=== PATIENT | male | born 1990 | race Caucasian/White ===

== ENCOUNTER 2016-11-12 11:37 | Emergency (ER) | payer SELFPAY ==
--- NOTE | 2016-11-12 12:10 | UC ---
Respiratory Complaint HPI - HPI Summary HPI Summary: PATIENT IS AN OTHERWISE HEALTHY 26YO M WHO PRESENTS TO WITH CC OF FOUR DAYS OF ILLNESS WHICH INCLUDE NAUSEA, HEAD CONGESTION, DIZZINESS, AND DIFFICULTY SWALLOWING. ALSO COMPLAINS OF COUGH WITH SPUTUM PRODUCTION. HE IS UNSURE IF HE HAS A FEVER BUT HAS BEEN HAVING COLD SWEATS. THROAT IS ONLY SORE BECAUSE HE HAS BEEN SLEEPING WITH HIS MOUTH OPEN. HE THINKS HE HAS DOUBLE EAR INFECTIONS WELL D/T BILATERAL EAR PAIN. NO HX OF EAR INFECTIONS IN THE PAST. DENIES FLU SHOT THIS YEAR. HE DENIES PREVIOUS SINUS INFECTIONS OR ILLNESSES. HE STATES LAST TIME ILL WAS SEVERAL YEARS AGO. DENIES MEDICATION USE FOR ANY REASON AND ALLERGIES INCLUDE AMOXICILLIN. PATIENT IS A SMOKER. SYMPTOMS ARE WORSE AT NIGHT. PATIENT LIVES ALONE AND DENIES SICK CONTACTS. - History of Current Complaint Chief Complaint: UCRespiratory Stated Complaint: RESP ISSUE EAR PAIN Time Seen by Provider: 11/12/16 12:07 Hx Obtained From: Patient Onset/Duration: Gradual Onset Timing: Constant Severity Initially: Moderate Severity Currently: Moderate Pain Intensity: 4 Pain Scale Used: 0-10 Numeric Character: Cough: Productive Aggravating Factors: Deep Breaths Alleviating Factors: OTC Meds, Upright Position Associated Signs And Symptoms: Positive: Fever, Chills, URI, Nasal Congestion, Hoarseness, Sinus Discomfort - Risk Factors Pulmonary Embolism Risk Factors: Negative Cardiac Risk Factors: Negative Pseudomonas Risk Factors: Negative Tuberculosis Risk Factors: Negative - Allergies/Home Medications Allergies/Adverse Reactions: Allergies Allergy/AdvReac Type Severity Reaction Status Date / Time Amoxicillin Allergy Severe Rash Verified 11/12/16 11:46 Home Medications: Home Medications Zquil 10 ml PO QPM PRN 11/12/16 [History] PMH/Surg Hx/FS Hx/Imm Hx Previously Healthy: Yes Endocrine History Of: Denies: Diabetes, Thyroid Disease Cardiovascular History Of: Denies: Cardiac Disorders, Hypertension Respiratory History Of: Denies: COPD, Asthma GI/ History Of: Denies: Ulcer - Surgical History Surgical History: None - Family History Known Family History: Positive: None - Social History Occupation: Employed Full-time Lives: Alone Alcohol Use: Rare Substance Use Type: Marijuana Smoking Status (MU): Heavy Every Day Tobacco Smoker Type: Cigarettes Amount Used/How Often: 1/2 PPD Length of Time of Smoking/Using Tobacco: 10+ YEARS Have You Smoked in the Last Year: Yes Household Exposure Type: Cigarettes Review of Systems Constitutional: Fever, Chills, Fatigue Skin: Negative ENT: Sore Throat, Ear Ache, Nasal Discharge Respiratory: Shortness Of Breath, Cough Cardiovascular: Negative Gastrointestinal: Other - NAUSEA Genitourinary: Negative Motor: Negative Musculoskeletal: Negative Neurological: Headache Psychological: Negative All Other Systems Reviewed And Are Negative: Yes Physical Exam Triage Information Reviewed: Yes Appearance: Ill-Appearing, Thin Vital Signs: Initial Vital Signs Temp 99.6 F 11/12/16 11:48 Pulse 101 11/12/16 11:48 Resp 16 11/12/16 11:48 BP 123/83 11/12/16 11:48 Pulse Ox 100 11/12/16 11:48 Vital Signs Reviewed: Yes Eye Exam: Normal Eyes: Positive: Conjunctiva Clear ENT: Positive: Pharynx normal, Nasal congestion, Nasal drainage, Tonsillar swelling Dental Exam: Normal Neck exam: Normal Neck: Positive: Supple, Nontender, No Lymphadenopathy Respiratory Exam: Normal Respiratory: Positive: Lungs clear, No respiratory distress, Respiratory distress Cardiovascular: Positive: RRR, Pulses Normal Musculoskeletal Exam: Normal Neurological: Positive: Alert Psychological Exam: Normal Psychological: Positive: Normal Response To Family, Age Appropriate Behavior Skin Exam: Normal UC Diagnostic Evaluation - Laboratory O2 Sat by Pulse Oximetry: 100 Respiratory Course/Dx - Course Course Of Treatment: PATIENT NOTES TO FEVER, CHILLS AND ACHES WITH SINUS PRESSURE. HE DOES NOT HAVE HEALTH INSURANCE AND PREFERS NOT TO HAVE A CXR. LIKELY A SINUS INFECTION D/T PAIN ON PALPATION OVER MAXILLARY SINUS. NO PAIN OVER FRONTAL SINUS. LUNGS SOUNDS ARE CLEAR. INFLUENZA NOT LIKELY D/T TIMING. PATIENT EDUCATED REGARDING ANTIBIOTICS. ENCOURAGED PROBIOTICS WITH MEDICATION. ALSO PRESCRIBED MUCINEX D/T PRODUCTIVE COUGH. SALINE NASAL SPRAYS RECOMMENDED WITH CONSERVATIVE MEASURES INCLUDING TEA, FLUIDS, HUMIDIFER AND REST. NOTE GIVEN FOR WORK FOR 2 DAYS. - Differential Dx/Diagnosis Differential Diagnosis/HQI/PQRI: Bronchitis, Lower Resp Infection, Sinusitis Provider Diagnoses: RHINOSINUSITIS Discharge - Discharge Plan Condition: Stable Disposition: HOME Prescriptions: Azithromyxin JAKUB (NF) [Z-Jakub (Zithromax) 250 mg tabs #6] 2 tab PO .TODAY, THEN 1 DAILY #6 tab guaiFENesin ER TAB [Mucinex*] 600 mg PO BID #12 tab.er Patient Education Materials: Rhinosinusitis (ED) Forms: *Work Release Referrals: No Primary Care Phys,NOPCP [Primary Care Provider] - Additional Instructions: Humidifier in the home. Tylenol 650 three times daily for aches and fevers. Azithromycin as directed. Mucinex twice daily for 6 days or until symptoms improve Drink plenty of water Hot tea with lemon and honey Over the counter saline nasal sprays such as Afrin will help with nasal congestion If symptoms become worse, come back to for further evaluation.
== END 2016-11-12 12:45 | disposition home or self-care (01) ==
LOC: UCEAST 11:37
DX: J32.9 Chronic sinusitis, unspecified (principal); F17.290 Nicotine dependence, other tobacco product, uncomplicated; F12.90 Cannabis use, unspecified, uncomplicated; Z88.0 Allergy status to penicillin
CPT/HCPCS: 99202; G0463

== ENCOUNTER 2017-09-16 11:55 | Emergency (ER) | payer SELFPAY ==
--- NOTE | 2017-09-16 12:55 | UC ---
Hand/Wrist HPI - HPI Summary HPI Summary: pt states "i got mad and punched a wall". it happened 13 hours ago. notes pain, swelling and a cut to his R hand. bright any other injuries. last tetanus is not known. - History Of Current Complaint Stated Complaint: RT HAND INJURY Time Seen by Provider: 09/16/17 12:16 Hx Obtained From: Patient ?: No Onset/Duration: Sudden Onset Severity Currently: Mild Pain Intensity: 0 Character Of Pain: Aching Aggravating Factor(s): Movement Alleviating Factor(s): Rest Associated Signs And Symptoms: Positive: Swelling. Negative: Redness, Fever Related History: Other: - fx that hand in the past - Allergies/Home Medications Allergies/Adverse Reactions: Allergies Allergy/AdvReac Type Severity Reaction Status Date / Time amoxicillin Allergy Rash Verified 09/16/17 12:30 PMH/Surg Hx/FS Hx/Imm Hx - Additional Past Medical History Additional PMH: fx R hand - Surgical History Surgical History: None - Family History Known Family History: Positive: None - Social History Occupation: Employed Full-time Lives: With Family Alcohol Use: Rare Substance Use Type: Marijuana Smoking Status (MU): Heavy Every Day Tobacco Smoker Type: Cigarettes Amount Used/How Often: 1/2 PPD Length of Time of Smoking/Using Tobacco: 10+ YEARS Have You Smoked in the Last Year: Yes Household Exposure Type: Cigarettes - Immunization History Hx Tetanus, Diphtheria Vaccination: No - unknown last shot but refusing to have one today Review of Systems Constitutional: Negative Skin: Negative Eyes: Negative ENT: Negative Respiratory: Negative Cardiovascular: Negative Gastrointestinal: Negative Genitourinary: Negative Motor: Negative Neurovascular: Negative Musculoskeletal: Other: - pain, swelling, cut R hand Neurological: Negative Psychological: Negative Is Patient Immunocompromised?: No All Other Systems Reviewed And Are Negative: Yes Physical Exam Triage Information Reviewed: Yes Appearance: Well-Appearing Vital Signs: Initial Vital Signs Temp 99.2 F 09/16/17 12:27 Pulse 72 09/16/17 12:27 Resp 12 09/16/17 12:27 BP 126/78 09/16/17 12:27 Pulse Ox 100 09/16/17 12:27 Vital Signs Reviewed: Yes Eye Exam: Normal ENT: Positive: Normal ENT inspection Neck: Positive: Supple Respiratory: Positive: Lungs clear, Normal breath sounds Cardiovascular: Positive: RRR, No Murmur Abdomen Description: Positive: Nontender, No Organomegaly, Soft Bowel Sounds: Positive: Present Musculoskeletal: Positive: Other: - RUE: ulnar dorsal hand with swelling, tenderness and laceration over 4th mcp area with steri strip plus small laceration between 2nd and 3rd mcp joints. s/v/m to hand is intact rest of RUE is atraumatic. Neurological: Positive: Alert Psychological: Positive: Age Appropriate Behavior Skin Exam: Normal Procedures - Procedure Summary Procedure Summary: Hand cleaned, dried. nurse flushed sites with sterile water. laceration base 4th digit 1cm length and tendon visible but intact, no fb's, appears clear. other laceration is about 4mm, no fb or tendon injury seen and appears clean. mastisol prep to both sites and steri strip to small site and two to larger site to approximate wound edges due to gaping. tolerated well. sites not sutured to to age and risk of increased infection. steri strips will allow for drainage if needed. will tx keflex given tendon visible but no signs of active infection. pt told pcn allergy since child but can not recall having any reaction thus I feel keflex is ok. need for close f/u for wound check and recheck immediately for any worsening stressed to pt. refer to pcp in [address] where he has been a pt. he did refuse tetanus shot here citing fear of needles. refused despite risk of tetanus if not immunized. Diagnostics - Radiology No standard instances Xray Interpretation: No Acute Changes Radiology Interpretation Completed By: Radiologist Hand/Wrist Course/Dx - Course Course Of Treatment: no infection or fx. old wound thus not sutured but did approximate with steri strips as high motion areas and wound gaping. site still able to drain if necessary. tetanus refused by pt. - Differential Dx/Diagnosis Provider Diagnoses: Contusion R hand. Laceration (1cm, 4mm R hand). Tendon exposure R hand. Discharge - Discharge Plan Condition: Stable Disposition: HOME Prescriptions: Cephalexin CAP* [Keflex CAP*] 500 mg PO TID 7 Days #21 cap Patient Education Materials: Contusion in Adults (ED), Steristrips (ED), Laceration Without Closure (ED) Forms: *Work Release Referrals: Victor Manuel Mccord MD [Medical Doctor] - 3 Days
--- NOTE | 2017-09-16 12:56 | RAD ---
INDICATION: Laceration over the fourth metacarpal phalangeal joint after "striking object" COMPARISON: None. TECHNIQUE: 4 views of the right hand were obtained. FINDINGS: The adequately corticated bones are in normal alignment. No significant focal osseous abnormality or fracture is seen. Joint spaces appear maintained. IMPRESSION: No radiographically apparent fracture or dislocation of the right hand. If the patient's symptoms persist, follow-up imaging is recommended.
[2017-09-16] MEDS ORDERED: Ibuprofen ADULT LIQ* 600 MG/30 ML UDC PO ONE (13:18)
== END 2017-09-16 13:43 | disposition home or self-care (01) ==
LOC: UCCORT 11:55
DX: S61.411A Laceration without foreign body of right hand, initial encounter (principal); W22.8XXA Striking against or struck by other objects, initial encounter; Y93.89 Activity, other specified; Y92.9 Unspecified place or not applicable; Z88.0 Allergy status to penicillin; F17.210 Nicotine dependence, cigarettes, uncomplicated
CPT/HCPCS: 99212; A9270-GY; G0463

== ENCOUNTER 2019-04-02 11:33 | Emergency (ER) | payer SELFPAY ==
--- NOTE | 2019-04-02 11:47 | UC ---
Lower Extremity/Ankle HPI - HPI Summary HPI Summary: 28 yo male presents with LEFT great toe injury. He tells me that this morning he was walking and stubbed his left great toe on a stand at home. Had immediate pain. Tried to go to work this morning, but was on his feet a lot and had increased pain, bruising, and swelling. He is able to ambulate, but has a noticeable limp and increased pain. Has not had anything OTC for discomfort. - History of Current Complaint Stated Complaint: TOE INJURY Time Seen by Provider: 04/02/19 11:47 Hx Obtained From: Patient Onset/Duration: Sudden Onset Severity Initially: Severe Severity Currently: Severe Pain Intensity: 9 Pain Scale Used: 0-10 Numeric Aggravating Factor(s): Standing, Ambulation Able to Bear Weight: Yes - Allergies/Home Medications Allergies/Adverse Reactions: Allergies Allergy/AdvReac Type Severity Reaction Status Date / Time amoxicillin Allergy Rash Verified 04/02/19 11:50 Home Medications: Home Medications NK [No Home Medications Reported] 04/02/19 [History Confirmed 04/02/19] PMH/Surg Hx/FS Hx/Imm Hx - Additional Past Medical History Additional PMH: None - Surgical History Surgical History: None - Family History Known Family History: Positive: None - Social History Occupation: Employed Full-time Lives: With Family Alcohol Use: Rare Substance Use Type: Marijuana Smoking Status (MU): Heavy Every Day Tobacco Smoker Type: Cigarettes Amount Used/How Often: 1/2 PPD Length of Time of Smoking/Using Tobacco: 10+ YEARS Have You Smoked in the Last Year: Yes Household Exposure Type: Cigarettes - Immunization History Hx Tetanus, Diphtheria Vaccination: No - unknown last shot but refusing to have one today Review of Systems All Other Systems Reviewed And Are Negative: No Constitutional: Positive: Negative Skin: Positive: Negative Respiratory: Positive: Negative Cardiovascular: Positive: Negative Neurovascular: Positive: Negative Musculoskeletal: Positive: Other: - Left great toe pain Neurological: Positive: Negative Psychological: Positive: Negative Physical Exam - Summary Physical Exam Summary: GENERAL: NAD. WDWN. No pain distress. SKIN: No rashes, sores, lesions, or open wounds. CHEST: No accessory muscle use. Breathing comfortably and in no distress. CV: Pulses intact PT and DP. Cap refill <2seconds MSK: LEFT GREAT TOE: Decreased ROM due to pain. Mild ecchymosis about dorsal IP joint. TTP at medial IP joint. Pain with flexion and full extension at IP joint. NTTP MTP or MT. NEURO: Alert. Sensations intact and symmetric B/L LEs PSYCH: Age appropriate behavior. Triage Information Reviewed: Yes Vital Signs: Vital Signs: Temp Pulse Resp BP Pulse Ox 98.6 F 81 18 123/71 100 04/02/19 11:47 04/02/19 11:47 04/02/19 11:47 04/02/19 11:47 04/02/19 11:47 Vital Signs Reviewed: Yes Diagnostics - Radiology XR toe Radiology Interpretation Completed By: Radiologist Summary of Radiographic Findings: IMPRESSION: NONDISPLACED FRACTURE OF THE DISTAL PHALANX OF THE FIRST DIGIT Lower Extremity Course/Dx - Course Course Of Treatment: XR as above. Discussed results with pt. Advised to rest, ice, and elevate his toe. In the clinic he was given ibuprofen and ice for his discomfort. Toe was roma taped and he was provided with a post-op shoe and crutches to use for comfort. Advised to f/u with Ortho in 1 week for a recheck - Differential Dx/Diagnosis Provider Diagnosis: Nondisplaced fracture of left great toe Discharge ED - Sign-Out/Discharge Documenting (check all that apply): Patient Departure All imaging exams completed and their final reports reviewed: Yes - Discharge Plan Condition: Stable Disposition: HOME Patient Education Materials: Toe Fracture (ED) Forms: *Work Release Referrals: No Primary Care Phys,NOPCP [Primary Care Provider] - Abimael Charles MD [Medical Doctor] - 1 Week Additional Instructions: If you develop a fever, shortness of breath, chest pain, new or worsening symptoms - please call your PCP or go to the ED immediately. 1) Rest, Ice, and elevate your toe to decrease pain and swelling 2) Keep your toe roma taped as much as possible 3) Use the post-op shoe and crutches as needed for discomfort 4) May take tylenol/ibuprofen as directed 5) I recommend that you call Orthopedics at the number below to schedule a follow up appointment in 1 week for a recheck of your toe - Billing Disposition and Condition Condition: STABLE Disposition: Home - Attestation Statements Provider Attestation: I was available for consult. This patient was seen by the JEANNE. The patient was not presented to, seen by, or examined by me. -Malu
[2019-04-02] MEDS ORDERED: Ibuprofen TAB* 600 MG PO ONE (12:21)
== END 2019-04-02 12:37 | disposition home or self-care (01) ==
LOC: UCEAST 11:33
DX: S92.425A Nondisplaced fracture of distal phalanx of left great toe, initial encounter for closed fracture (principal); Z88.0 Allergy status to penicillin; F17.210 Nicotine dependence, cigarettes, uncomplicated; X58.XXXA Exposure to other specified factors, initial encounter; Y92.009 Unspecified place in unspecified non-institutional (private) residence as the place of occurrence of the external cause
CPT/HCPCS: 99213; A9270-GY; G0463

== ENCOUNTER 2019-08-25 09:35 | Emergency (ER) | payer SELFPAY ==
--- NOTE | 2019-08-25 11:11 | UC ---
Throat Pain/Nasal Indra HPI - HPI Summary HPI Summary: 29 yo male presents with sinus symptoms. He tells me that over the last week he has been having sinus pain/pressure/congestion with post nasal drip and intermittent cough. He has been taking OTC mucinex and tylenol cold with little relief. He denies fever, chills, sore throat, SOB, abdominal pain, n/v - History of Current Complaint Chief Complaint: UCGeneralIllness Stated Complaint: SINUS ISSUE Time Seen by Provider: 08/25/19 11:11 Hx Obtained From: Patient Onset/Duration: Gradual Onset Severity: Moderate Pain Intensity: 7 Pain Scale Used: 0-10 Numeric - Allergies/Home Medications Allergies/Adverse Reactions: Allergies Allergy/AdvReac Type Severity Reaction Status Date / Time amoxicillin Allergy Rash Verified 08/25/19 10:10 Home Medications: Home Medications Azithromycin TAB* [Zithromax TAB (Z-JAKUB) 250 mg #6 tabs] 2 tab PO .TODAY, THEN 1 DAILY #1 jakub 08/25/19 [Rx] PMH/Surg Hx/FS Hx/Imm Hx - Additional Past Medical History Additional PMH: None - Surgical History Surgical History: None - Family History Known Family History: Positive: None - Social History Occupation: Employed Full-time Lives: With Family Alcohol Use: Rare Substance Use Type: None Smoking Status (MU): Heavy Every Day Tobacco Smoker Type: Cigarettes Amount Used/How Often: 1/2 PPD Length of Time of Smoking/Using Tobacco: 10+ YEARS Have You Smoked in the Last Year: Yes Household Exposure Type: Cigarettes - Immunization History Hx Tetanus, Diphtheria Vaccination: No - unknown last shot but refusing to have one today Review of Systems All Other Systems Reviewed And Are Negative: No Constitutional: Positive: Negative Skin: Positive: Negative Eyes: Positive: Negative ENT: Positive: Nasal Discharge, Sinus Congestion, Sinus Pain/Tenderness Respiratory: Positive: Cough Cardiovascular: Positive: Negative Gastrointestinal: Positive: Negative Neurological/Mental Status: Positive: Negative Psychological: Positive: Negative Physical Exam - Summary Physical Exam Summary: GENERAL: NAD. WDWN. No pain distress. SKIN: No rashes, sores, lesions, or open wounds. HEENT: Head: AT/NC Eyes: EOM intact. Conjunctiva clear without inflammation or discharge. Ears: Hearing grossly normal. TMs intact, no bulging, erythema, or edema. Nose: Nasal mucosa mildly swollen and erythematous with yellow/ clear discharge. TTP maxillary and frontal sinus. Positive post nasal drip Throat: Posterior oropharynx without exudates, erythema, or tonsillar enlargement. Uvula midline. NECK: Supple. Nontender. No lymphadenopathy. CHEST: CTAB. No r/r/w. No accessory muscle use. Breathing comfortably and in no distress. CV: RRR. Pulses intact. NEURO: Alert. PSYCH: Age appropriate behavior. Triage Information Reviewed: Yes Vital Signs: Initial Vital Signs Temp 98.6 F 08/25/19 10:07 Pulse 88 08/25/19 10:07 Resp 18 08/25/19 10:07 BP 123/83 08/25/19 10:07 Pulse Ox 100 08/25/19 10:07 Vital Signs Reviewed: Yes Throat Pain/Nasal Course/Dx - Course Course Of Treatment: Sinusitis - Differential Dx/Diagnosis Provider Diagnosis: Sinusitis Discharge ED - Sign-Out/Discharge Documenting (check all that apply): Patient Departure All imaging exams completed and their final reports reviewed: No Studies - Discharge Plan Condition: Stable Disposition: HOME Prescriptions: Azithromycin TAB* [Zithromax TAB (Z-JAKUB) 250 mg #6 tabs] 2 tab PO .TODAY, THEN 1 DAILY #1 jakub Patient Education Materials: Sinusitis (ED) Forms: *Work Release Referrals: No Primary Care Phys,NOPCP [Primary Care Provider] - Additional Instructions: If you develop a fever, shortness of breath, chest pain, new or worsening symptoms - please call your PCP or go to the ED immediately. - Billing Disposition and Condition Condition: STABLE Disposition: Home
== END 2019-08-25 11:20 | disposition home or self-care (01) ==
LOC: UCEAST 09:35
DX: J32.9 Chronic sinusitis, unspecified (principal); F17.210 Nicotine dependence, cigarettes, uncomplicated; Z88.0 Allergy status to penicillin
CPT/HCPCS: 99212; G0463